=== PATIENT | female | born 1945 | race African-American/Black ===

== ENCOUNTER 2016-07-24 17:19 | Emergency (ER) | payer MEDICARE, OTHER ==
--- NOTE | 2016-07-24 18:58 | ERRECORD ---
[facility] EMERGENCY RECORD HPI CONSTIPATION (18:20 BPIC) CHIEF COMPLAINT: Patient presents for evaluation of constipation. HISTORIAN: History provided by patient. LOCATION: Symptoms are generalized. QUALITY: Pain is sharp in nature. SEVERITY: Maximum severity of symptoms mild, Currently symptoms are mild. TIME COURSE: Gradual onset of symptoms, There has been no change in the patient's symptoms over time. ASSOCIATED WITH: Associated with nausea. EXACERBATED BY: Patient's condition exacerbated by nothing. RELIEVED BY: Patient's condition relieved by nothing, Patient's condition relieved by takes miralax daily and has tried magnesium citrate. ROS (18:21 BPIC) CONSTITUTIONAL: Negative constitutional review of systems, Historian denies chills, denies fever. EYES: Negative eye review of systems. ENT: Negative ears, nose, throat review of systems. CARDIOVASCULAR: Negative cardiovascular review of systems, Historian denies chest pain, denies palpitations. RESPIRATORY: Negative respiratory review of systems, Historian denies cough, denies shortness of breath. GI: Historian reports constipation, reports nausea. states that she has had bowel movements the past 2 days but much smaller than usual. MUSCULOSKELETAL: Negative musculoskeletal review of systems. SKIN: Negative skin review of systems. NEUROLOGIC: Negative neurologic review of systems. ENDOCRINE: Negative endocrine review of systems. HEMO/LYMPHATIC: Normal hematologic/lymphatic system review. PSYCHIATRIC: Negative psychiatric review of systems. NOTES: All other ROS is negative except as listed in HPI. PAST MEDICAL HISTORY MEDICAL HISTORY: Past medical history includes history of hypertension, Past medical history includes history of diabetes, Type II, Past medical history includes endocrine disease, hypothyroidism Past medical history includes cardiac history, coronary artery disease. (17:27 JDIS) FEMALE SURGICAL HISTORY: LUMBAR LAMINECTOMY, Surgical history of appendectomy, Surgical history of cholecystectomy. Surgical history of coronary artery bypass graft surgery,. (17:27 JDIS) SOCIAL HISTORY: Patient denies alcohol use, Patient denies drug use, Patient is a former tobacco user, smoked cigarettes, Patient quit smoking more than 10 years ago, Tobacco history notes: smoked for about 10 years. (17:27 JDIS) NOTES: I have reviewed and agree with the PMH/PSxH/FamHx/SocHx &a-1R&a+25V*p+0X*[id number]*c202B*c15G*c2P*p-0X&a-25V&a+1R Name: Leisa Babcock : 1945 F71 MedRec: [id number] AcctNum: [id number] Prepared: FriJul 24, 2016 18:52 by Interface Page 1 of 3 pMD [facility] EMERGENCY RECORD obtained by the nurse. (18:21 BPIC) KNOWN ALLERGIES Latex, Natural Rubber Reglan: Reaction: Hives, Severity: Mild, Source: Patient CURRENT MEDICATIONS (18:13 JDIS) "I don't have a list with me" VITAL SIGNS VITAL SIGNS: BP: 154/122, Pulse: 69, Resp: 18, Temp: 97.6 (Oral), Pain: 8, O2 sat: 99 on Room Air, Time: 07/24/2016 17:25. (17:25 JDIS) BP: 176/77, Pulse: 69, Resp: 18, Temp: 97.6, Pain: 8, O2 sat: 99 on ra, Time: 07/24/2016 18:36. (18:36 JDIS) PHYSICAL EXAM (18:21 BPIC) CONSTITUTIONAL: Vital signs reviewed, Patient appears non toxic, Patient alert and oriented to person, place and time, Pt is in no apparent distress. HEAD: Head exam included findings of head atraumatic, normocephalic. EYES: Eye exam included findings of eyelids normal to inspection, Pupils equally round and reactive to light, Extraocular muscles intact. ENT: ENT exam normal, Nose exam normal, no nasal deformity, no bleeding from nares, Pharynx exam normal, Mouth exam normal, mucous membranes moist. NECK: Neck exam included findings of normal range of motion, Trachea midline. RESPIRATORY CHEST: Respiratory and chest exam normal, Breath sounds clear, No wheezing, No rales, Chest exam included findings of chest movement symmetrical, Chest expansion equal. CARDIOVASCULAR: Cardiovascular assessment normal, Cardiovascular exam included findings of heart rate regular rate and rhythm, Heart sounds normal, equal radial and DP pulses. ABDOMEN FEMALE: Abdominal exam included findings of abdomen nontender, Bowel sounds normal, no mass, no pulsatile masses, no peritoneal signs. BACK: Back exam included findings of normal inspection, range of motion normal, no costovertebral angle tenderness. UPPER EXTREMITY: Upper extremity exam included findings of inspection normal, Range of motion normal. LOWER EXTREMITY: Lower extremity exam included findings of inspection normal, Range of motion normal. NEURO: Neuro exam findings include patient oriented to person, place and time, Speech normal, no focal motor deficits, no focal sensory deficits. SKIN: Skin exam included findings of skin warm, dry, and normal in color. PSYCHIATRIC: Psychiatric exam included findings of patient &a-1R&a+25V*p+0X*o4486Q*c202B*c15G*c2P*p-0X&a-25V&a+1R Name: Leisa Babcock : 1945 F71 MedRec: [id number] AcctNum: [id number] Prepared: FriJul 24, 2016 18:52 by Interface Page 2 of 3 pMD [facility] EMERGENCY RECORD oriented to person place and time, Normal affect. RADIOLOGYINTERPRETATION (18:20 BPIC) ABDOMEN: KUB films negative, non obstructive bowel gas pattern. DOCTOR NOTES (18:21 BPIC) TEXT: I discussed the diagnosis with the patient prior to discharge. All questions were answered. There is no indication for admission currently and the patient will follow up with a primary care physician. Any pertinent labs or imaging were reviewed and dicussed with the patient. If any new or emergent symptoms occur, the patient will return to the emergency department. PROBLEM LIST No recorded problems DIAGNOSIS (18:22 BPIC) FINAL: PRIMARY: Constipation, ADDITIONAL: NAUSEA. PRESCRIPTION (18:23 BPIC) Colace: CAPSULE : 100 mg : ORAL : Quantity: 100 Unit: mg Route: ORAL Schedule: 2 times a day Dispense: 30 Unit: cap(s) May substitute. Refills: No Refills . NOTES: No Refills. Zofran ODT: TABLET,DISINTEGRATING : 8 mg : ORAL : Quantity: 8 Unit: mg Route: ORAL Schedule: every 6 hours PRN Dispense: 20 Unit: tab(s) May substitute. Refills: No Refills . NOTES: No Refills. DISPOSITION PATIENT: Disposition Type: Discharge, Disposition: *Discharge Home, Condition: Good. (18:22 BPIC) Disposition Transport: Car. (18:49 MCRS) Patient left the department. (18:49 MCRS) Johnson: BPIC=MD Erin, Tyron JDIS=ALEKSEY Tinajero, Salma MCRS=ALEKSEY Martino, Anthony &a-1R&a+25V*p+0X*[id number]*c202B*c15G*c2P*p-0X&a-25V&a+1R Name: Leisa Babcock : 1945 F71 MedRec: [id number] AcctNum: [id number] Prepared: FriJul 24, 2016 18:52 by Interface Page 3 of 3 pMD MTDD
--- NOTE | 2016-07-24 19:13 | PICIS ---
[facility] EMERGENCY RECORD TRIAGE (FriJul 24, 2016 17:24 JDIS) TRIAGE NOTES: pt c/o abd pain due to constipation since Friday. (FriJul 24, 2016 17:24 JDIS) PATIENT: NAME: Leisa Babcock, AGE: 71, GENDER: female, : Fri1945, TIME OF GREET: FriJul 24, 2016 17:21, PREFERRED LANGUAGE: Portuguese, ETHNICITY: Not or , FALL RISK: NO, ECODE BILLING MAP: [facility], SSN: [id number], Zip Code: [address], KG WEIGHT: 71.67, PHONE: CELL, , , PERSON ID: [id number], PCP: MD CONTRERAS IMELDA. (FriJul 24, 2016 17:24 JDIS) COMPLAINT: CONSTIPATION. (FriJul 24, 2016 17:24 JDIS) ADMISSION: URGENCY: 3 Urgent, ADMISSION SOURCE: Home, TRANSPORT: CAR, BED: ED -01. (FriJul 24, 2016 17:24 JDIS) PAIN: Patient complains of pain described as, cramping. (17:27 JDIS) IMMUNIZATIONS: Flu vaccine up to date, Tetanus not up to date, Pneumococcal vaccine not up to date. (17:27 JDIS) SIRS SCORING: Heart Rate 55-109 (0), Temp range 96.8-101.1 (0), respiratory rate 12-24 (0), Mental Status altered: no (0), Infection or Suspected Infection: No. (17:27 JDIS) TRIAGE SCREENING: Patient denies suicidal ideation, Patient denies presence of domestic violence. (17:27 JDIS) LMP: LMP: Hysterectomy. (17:27 JDIS) PROVIDERS: TRIAGE NURSE: Salma Tinajero RN. (FriJul 24, 2016 17:24 JDIS) PREVIOUS VISIT ALLERGIES: Latex, Natural Rubber, Reglan. (FriJul 24, 2016 17:24 JDIS) Latex, Natural Rubber, Reglan. (17:27 JDIS) KNOWN ALLERGIES Latex, Natural Rubber Reglan: Reaction: Hives, Severity: Mild, Source: Patient CURRENT MEDICATIONS (18:13 JDIS) "I don't have a list with me" VITAL SIGNS VITAL SIGNS: BP: 154/122, Pulse: 69, Resp: 18, Temp: 97.6 (Oral), Pain: 8, O2 sat: 99 on Room Air, Time: 07/24/2016 17:25. (17:25 JDIS) BP: 176/77, Pulse: 69, Resp: 18, Temp: 97.6, Pain: 8, O2 sat: 99 on ra, Time: 07/24/2016 18:36. (18:36 JDIS) NURSING ASSESSMENT: ABDOMEN (18:13 JDIS) CONSTITUTIONAL: Patient arrives ambulatory, Gait steady, History obtained from patient, Patient appears comfortable, Patient cooperative, Patient alert, Oriented to person, place and time, Skin warm, Skin dry, Skin normal in color, Mucous membranes pink, Mucous membranes moist, Patient is well-groomed. PAIN: cramping pain, diffusely, &a-1R&a+25V*p+0X*s7506F*c202B*c15G*c2P*p-0X&a-25V&a+1R Name: Leisa Babcock : 1945 F71 MedRec: [id number] AcctNum: [id number] Prepared: FriJul 24, 2016 18:59 by Interface Page 1 of 5 pMD [facility] EMERGENCY RECORD constant, Pain exacerbated by nothing, Nothing has been tried to alleviate the pain. ABDOMEN: Abdomen assessment findings include abdomen symmetrical, Abdomen soft, Associated with constipation. GENITOURINARY FEMALE: Notes: denies any urinary s/s. NURSING PROCEDURE: DISCHARGE NOTE (18:36 JDIS) DISCHARGE: Patient discharged to home, ambulating without assistance, driving self, accompanied by friend, Summary of Care printed/ provided, Patient requested and was provided an electronic copy of Discharge Instructions, Transition record given to patient, Discharge instructions given to patient, Simple or moderate discharge teaching performed, by Ruchi Tinajero RN, Prescriptions given and instructions on side effects given, Above person(s) verbalized understanding of discharge instructions and follow-up care, Patient treated and evaluated by physician. VITAL SIGNS: BP: 176, / 77, Pulse: 69, Resp: 18, Temp: 97.6, Pain: 8, O2 sat: 99, on: ra. ORDER DETAILS Order Name: XR Abdomen 1 View, Status: Active, Time: 17:43 07/24/2016, User: BP, - Ordered for: MD Khan Bryan, - Entered by: MD Khan Bryan - FriJul 24, 2016 17:43, - Quantity: 1. HPI CONSTIPATION (18:20 BPIC) CHIEF COMPLAINT: Patient presents for evaluation of constipation. HISTORIAN: History provided by patient. LOCATION: Symptoms are generalized. QUALITY: Pain is sharp in nature. SEVERITY: Maximum severity of symptoms mild, Currently symptoms are mild. TIME COURSE: Gradual onset of symptoms, There has been no change in the patient's symptoms over time. ASSOCIATED WITH: Associated with nausea. EXACERBATED BY: Patient's condition exacerbated by nothing. RELIEVED BY: Patient's condition relieved by nothing, Patient's condition relieved by takes miralax daily and has tried magnesium citrate. ROS (18:21 BPIC) CONSTITUTIONAL: Negative constitutional review of systems, Historian denies chills, denies fever. EYES: Negative eye review of systems. ENT: Negative ears, nose, throat review of systems. CARDIOVASCULAR: Negative cardiovascular review of systems, Historian denies chest pain, denies palpitations. RESPIRATORY: Negative respiratory review of systems, Historian denies cough, denies shortness of breath. &a-1R&a+25V*p+0X*t8544A*c202B*c15G*c2P*p-0X&a-25V&a+1R Name: Leisa Babcock : 1945 F71 MedRec: [id number] AcctNum: [id number] Prepared: FriJul 24, 2016 18:59 by Interface Page 2 of 5 pMD [facility] EMERGENCY RECORD GI: Historian reports constipation, reports nausea. states that she has had bowel movements the past 2 days but much smaller than usual. MUSCULOSKELETAL: Negative musculoskeletal review of systems. SKIN: Negative skin review of systems. NEUROLOGIC: Negative neurologic review of systems. ENDOCRINE: Negative endocrine review of systems. HEMO/LYMPHATIC: Normal hematologic/lymphatic system review. PSYCHIATRIC: Negative psychiatric review of systems. NOTES: All other ROS is negative except as listed in HPI. PAST MEDICAL HISTORY MEDICAL HISTORY: Past medical history includes history of hypertension, Past medical history includes history of diabetes, Type II, Past medical history includes endocrine disease, hypothyroidism Past medical history includes cardiac history, coronary artery disease. (17:27 JDIS) FEMALE SURGICAL HISTORY: LUMBAR LAMINECTOMY, Surgical history of appendectomy, Surgical history of cholecystectomy. Surgical history of coronary artery bypass graft surgery,. (17:27 JDIS) SOCIAL HISTORY: Patient denies alcohol use, Patient denies drug use, Patient is a former tobacco user, smoked cigarettes, Patient quit smoking more than 10 years ago, Tobacco history notes: smoked for about 10 years. (17:27 JDIS) NOTES: I have reviewed and agree with the PMH/PSxH/FamHx/SocHx obtained by the nurse. (18:21 BPIC) PHYSICAL EXAM (18:21 BPIC) CONSTITUTIONAL: Vital signs reviewed, Patient appears non toxic, Patient alert and oriented to person, place and time, Pt is in no apparent distress. HEAD: Head exam included findings of head atraumatic, normocephalic. EYES: Eye exam included findings of eyelids normal to inspection, Pupils equally round and reactive to light, Extraocular muscles intact. ENT: ENT exam normal, Nose exam normal, no nasal deformity, no bleeding from nares, Pharynx exam normal, Mouth exam normal, mucous membranes moist. NECK: Neck exam included findings of normal range of motion, Trachea midline. RESPIRATORY CHEST: Respiratory and chest exam normal, Breath sounds clear, No wheezing, No rales, Chest exam included findings of chest movement symmetrical, Chest expansion equal. CARDIOVASCULAR: Cardiovascular assessment normal, Cardiovascular exam included findings of heart rate regular rate and rhythm, Heart sounds normal, equal radial and DP pulses. ABDOMEN FEMALE: Abdominal exam included findings of abdomen &a-1R&a+25V*p+0X*r6450C*c202B*c15G*c2P*p-0X&a-25V&a+1R Name: Leisa Babcock : 1945 F71 MedRec: [id number] AcctNum: [id number] Prepared: FriJul 24, 2016 18:59 by Interface Page 3 of 5 pMD [facility] EMERGENCY RECORD nontender, Bowel sounds normal, no mass, no pulsatile masses, no peritoneal signs. BACK: Back exam included findings of normal inspection, range of motion normal, no costovertebral angle tenderness. UPPER EXTREMITY: Upper extremity exam included findings of inspection normal, Range of motion normal. LOWER EXTREMITY: Lower extremity exam included findings of inspection normal, Range of motion normal. NEURO: Neuro exam findings include patient oriented to person, place and time, Speech normal, no focal motor deficits, no focal sensory deficits. SKIN: Skin exam included findings of skin warm, dry, and normal in color. PSYCHIATRIC: Psychiatric exam included findings of patient oriented to person place and time, Normal affect. EVENTS TRANSFER: Triage to Emergency Main ED -01. (FriJul 24, 2016 17:24 JDIS) Removed from Emergency Main ED -01. (18:49 MCRS) RADIOLOGYINTERPRETATION (18:20 BPIC) ABDOMEN: KUB films negative, non obstructive bowel gas pattern. DOCTOR NOTES (18:21 BPIC) TEXT: I discussed the diagnosis with the patient prior to discharge. All questions were answered. There is no indication for admission currently and the patient will follow up with a primary care physician. Any pertinent labs or imaging were reviewed and dicussed with the patient. If any new or emergent symptoms occur, the patient will return to the emergency department. PROBLEM LIST No recorded problems DIAGNOSIS (18:22 BPIC) FINAL: PRIMARY: Constipation, ADDITIONAL: NAUSEA. DISPOSITION PATIENT: Disposition Type: Discharge, Disposition: *Discharge Home, Condition: Good. (18:22 BPIC) Disposition Transport: Car. (18:49 MCRS) Patient left the department. (18:49 MCRS) INSTRUCTION (18:23 BPIC) DISCHARGE: CONSTIPATION (ADULT). FOLLOWUP: MD DIANE, [facility], [facility], [address] [place] [id number], [phone]. SPECIAL: Please follow up with your physician in the next 2-3 &a-1R&a+25V*p+0X*[id number]*c202B*c15G*c2P*p-0X&a-25V&a+1R Name: Leisa Babcock : 1945 F71 MedRec: [id number] AcctNum: [id number] Prepared: FriJul 24, 2016 18:59 by Interface Page 4 of 5 pMD [facility] EMERGENCY RECORD days. Return to the Emergency Room with any worsening of your symptoms or other emergent concerns. Thank you for [facility] Emergency Department for your care today, and God Bless You!. PRESCRIPTION (18:23 BPIC) Colace: CAPSULE : 100 mg : ORAL : Quantity: 100 Unit: mg Route: ORAL Schedule: 2 times a day Dispense: 30 Unit: cap(s) May substitute. Refills: No Refills . NOTES: No Refills. Zofran ODT: TABLET,DISINTEGRATING : 8 mg : ORAL : Quantity: 8 Unit: mg Route: ORAL Schedule: every 6 hours PRN Dispense: 20 Unit: tab(s) May substitute. Refills: No Refills . NOTES: No Refills. IMAGING (18:39 JDIS) *DISCHARGE INSTRUCTIONS RECEIPT: Image captured from scanner. *SUPPLY CHARGE SHEET: Image captured from scanner. ADMIN (18:35 BPIC) DIGITAL SIGNATURE: MD Khan Bryan. Johnson: BPIC=MD Khan Bryan JDIS=ALEKSEY Tinajero, Salma MCRS=ALEKSEY Martino, Anthony &a-1R&a+25V*p+0X*f6327R*c202B*c15G*c2P*p-0X&a-25V&a+1R Name: Leisa Babcock : 1945 F71 MedRec: [id number] AcctNum: [id number] Prepared: FriJul 24, 2016 18:59 by Interface Page 5 of 5 pMD MTDD
--- NOTE | 2016-07-24 20:46 | RAD ---
SINGLE VIEW OF THE ABDOMEN COMPARISON: None. HISTORY: Constipation. FINDINGS: Single view of the abdomen shows a non-specific, non-obstructive bowel gas pattern. No suspicious c alcifications are seen. Cholecystectomy clips are present. IMPRESSION: Non-obstructive bowel gas pattern. POS: [facility]
== END 2016-07-24 18:36 | disposition home or self-care (01) ==
LOC: MADERS 17:19
DX: K59.00 Constipation, unspecified (principal); R11.0 Nausea; I10 Essential (primary) hypertension; E11.9 Type 2 diabetes mellitus without complications; E03.9 Hypothyroidism, unspecified; I25.10 Atherosclerotic heart disease of native coronary artery without angina pectoris; Z90.49 Acquired absence of other specified parts of digestive tract; Z95.1 Presence of aortocoronary bypass graft; Z87.891 Personal history of nicotine dependence
CPT/HCPCS: 74000; 99283

== ENCOUNTER 2016-09-20 13:05 | Outpatient (CLI) | payer MEDICARE ==
[2016-09-20 13:47] LABS: Anion Gap 17 mmol/L (10-20); BUN (Urea Nitrogen) 10 mg/dL (9.8-20.1); Calc. Creatinine Clearance 0 mL/min (70-130); Calcium 9.8 mg/dL (7.8-10.44); Carbon Dioxide 22 mmol/L (23-31); Chloride 100 mmol/L (98-107); Estimated GFR-MDRD 44; Glucose 184 mg/dL (83-110); Potassium 4.1 mmol/L (3.5-5.1); Sodium 135 mmol/L (136-145)
== END 2016-09-20 13:06 | disposition home or self-care (01) ==
LOC: MADLAB 13:05
PROVIDERS: ATTEND Internal Medicine Nephrology
DX: I12.9 Hypertensive chronic kidney disease with stage 1 through stage 4 chronic kidney disease, or unspecified chronic kidney disease (principal); N18.3 Chronic kidney disease, stage 3 (moderate); E11.00 Type 2 diabetes mellitus with hyperosmolarity without nonketotic hyperglycemic-hyperosmolar coma (NKHHC)
CPT/HCPCS: 36415; 80048

== ENCOUNTER 2016-11-26 21:18 | Emergency (ER) | payer MEDICARE ==
[2016-11-26] MEDS ORDERED: HYDROcodone/Acetaminophen 10/325 mg Tablet ONE (22:49)
[2016-11-26] MEDS ORDERED: Naproxen 500 MG TAB ONE (22:49)
[2016-11-26] MEDS ORDERED: Ondansetron ODT 4 MG TAB ONE (22:49)
[2016-11-26 22:59] LABS: Bilirubin Negative (Negative); Blood, Urine Negative (Negative); Clarity Clear (Clear); Glucose, Urine (Dipstick) 500 mg/dL (Negative); Leukocyte Negative (Negative); Nitrite Negative (Negative); Protein, Urine (Dipstick) Negative (Neg-Trace); Specific Gravity, Urine 1.015 (1.005-1.030); Urobilinogen 0.2 mg/dL (0.2-1.0)
[2016-11-26 23:06] LABS: Bacteria/HPF Rare-Few HPF (None Seen); RBC/HPF None Seen HPF (0-3); WBC/HPF None Seen HPF (0-3); Yeast-All Forms Rare HPF (None Seen)
--- NOTE | 2016-11-26 23:34 | RAD ---
AP VIEW OF THE PELVIS 11/26/16 INDICATION; Fall. FINDINGS: No acute fracture or subluxation is evident. There is an endograft stent seen within the right hemip judie. There is heterotopic ossification overlying the right lesser trochanter and left greater troc hanter. IMPRESSION: No acute osseous abnormality. POS: [facility]
--- NOTE | 2016-11-26 23:36 | RAD ---
THREE VIEWS OF THE RIGHT SHOULDER 11/26/16 INDICATION: Fall with right shoulder pain. There is mild glenohumeral osteoarthrosis. There is diffuse osteopenia. Visualized right lung is priti ar. IMPRESSION: No acute osseous abnormality. POS: [facility]
--- NOTE | 2016-11-26 23:36 | RAD ---
FOUR VIEWS OF THE RIGHT KNEE 11/26/16 INDICATION: Fall with right knee pain. FINDINGS: No acute fracture or subluxation is evident. There is mild degenerative arthrosis of the right knee predominantly affecting the medial femorotibial and patellofemoral compartments. There is chondrocal cinosis involving the menisci of the right knee. IMPRESSION: No acute osseous abnormality. POS: [facility]
--- NOTE | 2016-11-26 23:40 | CT ---
NONCONTRAST CT OF THE BRAIN 11/26/16 INDICATION: Fall. COMPARISON: Prior exam dated 06/10/14. FINDINGS: No acute infarct, hemorrhage or hydrocephalus is present. The septum pellucidum and third ventricle are midline. There is mild chronic small vessel white matter ischemic change which is similar. Skull and extracranial soft tissues are unremarkable. IMPRESSION: No acute intracranial abnormality. POS: [facility]
[2016-11-26 23:56] LABS: PTT 25.1 SEC (22.9-36.1); Prothrombin Time 13.4 SEC (12.0-14.7)
[2016-11-27 00:04] LABS: ALT (SGPT) 29 U/L (8-55); AST (SGOT) 27 U/L (5-34); Albumin 3.6 g/dL (3.4-4.8); Alkaline Phosphatase 137 U/L (40-150); Anion Gap 18 mmol/L (10-20); BUN (Urea Nitrogen) 44 mg/dL (9.8-20.1); Bilirubin, Total 0.3 mg/dL (0.2-1.2); Calc. Creatinine Clearance 0 mL/min (70-130); Calcium 9.9 mg/dL (7.8-10.44); Carbon Dioxide 22 mmol/L (23-31); Chloride 96 mmol/L (98-107); Estimated GFR-MDRD 28; Globulin 4.6 g/dL (2.4-3.5); Glucose 304 mg/dL (83-110); Potassium 4.7 mmol/L (3.5-5.1); Protein, Total 8.2 g/dL (5.8-8.1); Sodium 131 mmol/L (136-145)
[2016-11-27 00:08] LABS: Hemoglobin 12.4 g/dL (12.0-16.0); Lymphocytes 8 % (21-51); MDiff Complete? YES; Mean Corpuscular HGB CONC 33.2 g/dL (32.0-36.0); Mean Corpuscular Hemoglobin 30.7 pg (27.0-31.0); Mean Corpuscular Volume 92.4 fl (81.0-99.0); Mean Platelet Volume 6.1 fL (7.4-10.4); Monocytes 2 % (0-10); Neutrophil 89 % (42-75); PLT Morphology Comment Appears Adequate; Platelet Count 370 thou/uL (130-400); RBC Distribution Width 12.4 % (11.5-14.5); RBC Morphology Normal; Reactive Lymphocytes 1 % (0-10); Red Blood Cell (RBC) Count 4.05 mill/uL (4.20-5.40); White Blood Cell (WBC) Count 11.6 thou/uL (4.8-10.8)
--- NOTE | 2016-11-27 00:08 | CT ---
CT OF THE CERVICAL SPINE WITHOUT CONTRAST 11/26/16 INDICATION: Fall with neck pain. COMPARISON: None. FINDINGS: No acute fracture or subluxation is evident. There is severe multilevel spondylosis of the cervical spine. There is multilevel areas of calcification involving the ligamentum flavum and posterior longitudina l ligament. There is moderate osseous neural foraminal narrowing at C4-5 due to the ossifications PL L as well as the ligamentum flavum. There is at least mild to moderate central canal narrowing at C5 -6 due to ossification of the PLL and ligamentum flavum. Prevertebral soft tissues are unremarkable. Lung apices are clear. Craniocervical junction appears w ithin normal limits. IMPRESSION: 1. No acute osseous abnormality. 2. 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 POS: [facility]
--- NOTE | 2016-11-27 00:10 | RAD ---
TWO VIEWS OF THE RIGHT HIP 11/26/16 INDICATION: Fall with right hip pain. FINDINGS: No acute fracture or subluxation is evident. There is a focus of hydroxyapatite deposition see adjac ent to the lesser trochanter. There is an endograft stent seen within the right hemipelvis. IMPRESSION: 1. No acute osseous abnormality. 2. Calcific tendinosis seen near the iliopsoas insertion of the right lesser trochanter. POS: [facility]
== END 2016-11-27 00:53 | disposition home or self-care (01) ==
LOC: MADERS 21:18
DX: T07 Unspecified multiple injuries (principal); M25.511 Pain in right shoulder; M25.551 Pain in right hip; M25.561 Pain in right knee; I10 Essential (primary) hypertension; E11.9 Type 2 diabetes mellitus without complications; E03.9 Hypothyroidism, unspecified; I25.10 Atherosclerotic heart disease of native coronary artery without angina pectoris; Z87.891 Personal history of nicotine dependence; Z79.899 Other long term (current) drug therapy; Z79.84 Long term (current) use of oral hypoglycemic drugs; W06.XXXA Fall from bed, initial encounter
CPT/HCPCS: 36415; 70450; 72125; 72170; 80053; 81001; 83880; 85025; 85610; 85730; 87086; Q0162

== ENCOUNTER 2017-02-10 15:11 | Emergency (ER) | payer MEDICARE, OTHER ==
--- NOTE | 2017-02-10 16:27 | RAD ---
CHEST PA AND LATERAL: History: 71-year-old female with cough. Comparison: 06-05-16 FINDINGS: Post underlying sternotomy. Left humeral head replacement changes. Mild increased linear and interst itial markings bilaterally. Atherosclerosis of the aorta with some ectasia. Appearance is overall st able from the prior study. IMPRESSION: Mild stable chronic changes. No significant acute intrathoracic disease. POS: [facility]
== END 2017-02-10 17:08 | disposition home or self-care (01) ==
LOC: MADERS 15:11
DX: J06.9 Acute upper respiratory infection, unspecified (principal); I10 Essential (primary) hypertension; E11.9 Type 2 diabetes mellitus without complications; E03.9 Hypothyroidism, unspecified; I25.10 Atherosclerotic heart disease of native coronary artery without angina pectoris; Z87.891 Personal history of nicotine dependence
CPT/HCPCS: 71020

== ENCOUNTER 2017-03-21 13:30 | Outpatient (CLI) | payer MEDICARE ==
[2017-03-21 14:12] LABS: Anion Gap 15 mmol/L (10-20); BUN (Urea Nitrogen) 16 mg/dL (9.8-20.1); Calc. Creatinine Clearance 0 mL/min (70-130); Carbon Dioxide 24 mmol/L (23-31); Chloride 100 mmol/L (98-107); Estimated GFR-MDRD 40; Glucose 159 mg/dL (83-110); Potassium 3.6 mmol/L (3.5-5.1); Sodium 135 mmol/L (136-145)
== END 2017-03-21 13:31 | disposition home or self-care (01) ==
LOC: MADLAB 13:30
PROVIDERS: ATTEND Internal Medicine Nephrology
DX: I12.9 Hypertensive chronic kidney disease with stage 1 through stage 4 chronic kidney disease, or unspecified chronic kidney disease (principal); N18.3 Chronic kidney disease, stage 3 (moderate); E11.00 Type 2 diabetes mellitus with hyperosmolarity without nonketotic hyperglycemic-hyperosmolar coma (NKHHC)
CPT/HCPCS: 36415; 80048

== ENCOUNTER 2017-04-11 21:32 | Emergency (ER) | payer MEDICARE ==
[2017-04-11] MEDS ORDERED: Meclizine HCl 25 MG TAB ONE (22:01)
[2017-04-11 23:04] LABS: #Basophils 0.1 thou/uL (0.0-0.2); #Eosinphils 0.3 thou/uL (0.0-0.7); #Lymphocytes 1.7 thou/uL (1.20-3.40); #Monocytes 0.5 thou/uL (0.11-0.59); #Neutrophils 4.9 thou/uL (1.40-6.50); %Basophils 1.6 % (0.0-1.0); %Eosinophils 4.2 % (0.0-10.0); %Lymphocytes 22.2 % (21.0-51.0); %Monocytes 6.2 % (0.0-10.0); %Neutrophils 65.8 % (42.0-75.0); Hemoglobin 12.2 g/dL (12.0-16.0); Mean Corpuscular Hemoglobin 30.4 pg (27.0-31.0); Mean Corpuscular Volume 92.2 fl (81.0-99.0); Mean Platelet Volume 6.6 fL (7.4-10.4); Platelet Count 270 thou/uL (130-400); RBC Distribution Width 12.5 % (11.5-14.5); White Blood Cell (WBC) Count 7.4 thou/uL (4.8-10.8)
[2017-04-11 23:07] LABS: Anion Gap 15 mmol/L (10-20); BUN (Urea Nitrogen) 12 mg/dL (9.8-20.1); Calc. Creatinine Clearance 0 mL/min (70-130); Calcium 9.2 mg/dL (7.8-10.44); Carbon Dioxide 26 mmol/L (23-31); Chloride 100 mmol/L (98-107); Estimated GFR-MDRD 43; Glucose 144 mg/dL (83-110); Potassium 3.7 mmol/L (3.5-5.1); Sodium 137 mmol/L (136-145)
== END 2017-04-11 23:35 | disposition home or self-care (01) ==
LOC: MADERS 21:32
DX: H81.13 Benign paroxysmal vertigo, bilateral (principal); I10 Essential (primary) hypertension; E11.9 Type 2 diabetes mellitus without complications; E03.9 Hypothyroidism, unspecified; I25.10 Atherosclerotic heart disease of native coronary artery without angina pectoris; Z87.891 Personal history of nicotine dependence
CPT/HCPCS: 36416; 80048; 85025; 93005; 36415-59

== ENCOUNTER 2017-05-03 10:38 | Emergency (ER) | payer MEDICARE ==
[2017-05-03] MEDS ORDERED: Ketorolac Tromethamine 60 MG/2 ML VIAL ONE (11:35)
[2017-05-03] MEDS ORDERED: Ondansetron ODT 4 MG TAB ONE (11:43)
== END 2017-05-03 12:07 | disposition home or self-care (01) ==
LOC: MADERS 10:38
DX: M13.0 Polyarthritis, unspecified (principal); M10.9 Gout, unspecified; E11.9 Type 2 diabetes mellitus without complications; I10 Essential (primary) hypertension; E03.9 Hypothyroidism, unspecified; I25.10 Atherosclerotic heart disease of native coronary artery without angina pectoris; Z87.891 Personal history of nicotine dependence; Z79.82 Long term (current) use of aspirin; Z79.899 Other long term (current) drug therapy
CPT/HCPCS: 96372; J1885; Q0162

== ENCOUNTER 2017-06-18 14:15 | Emergency (ER) | payer MEDICARE, OTHER ==
[~2017-06-18 14:15] MED LIST: Sodium Chloride 0.9% 1,000 ML BAG ONE; Sodium Chloride 0.9% 100 ML BAG ONE
--- NOTE | 2017-06-18 14:59 | RAD ---
PORTABLE CHEST: History: Sepsis. Hypertension. FINDINGS: Lungs appear well aerated and clear. No infiltrates seen. Heart is upper normal size with post op jamel rnotomy change. No interval change noted with compared to 06-05-16 exam. IMPRESSION: No acute finding. POS: [facility]
[2017-06-18 15:43] LABS: ALT (SGPT) 43 U/L (8-55); AST (SGOT) 31 U/L (5-34); Alkaline Phosphatase 96 U/L (40-150); Anion Gap 13 mmol/L (10-20); BUN (Urea Nitrogen) 22 mg/dL (9.8-20.1); Bilirubin, Total 0.8 mg/dL (0.2-1.2); Calc. Creatinine Clearance 0 mL/min (70-130); Calcium 8.5 mg/dL (7.8-10.44); Carbon Dioxide 24 mmol/L (23-31); Chloride 96 mmol/L (98-107); Estimated GFR-MDRD 41; Globulin 3.7 g/dL (2.4-3.5); Glucose 123 mg/dL (83-110); Potassium 4.1 mmol/L (3.5-5.1); Protein, Total 6.7 g/dL (6.0-8.3)
[2017-06-18 15:44] LABS: Band 10 % (5-11); Hemoglobin 10.8 g/dL (12.0-16.0); Lymphocytes 14 % (21-51); MDiff Complete? YES; Mean Corpuscular HGB CONC 34.4 g/dL (32.0-36.0); Mean Corpuscular Hemoglobin 31.6 pg (27.0-31.0); Mean Corpuscular Volume 91.9 fl (81.0-99.0); Mean Platelet Volume 8.2 fL (7.4-10.4); Monocytes 13 % (0-10); Neutrophil 63 % (42-75); Platelet Count 148 thou/uL (130-400); RBC Distribution Width 13.7 % (11.5-14.5); Red Blood Cell (RBC) Count 3.42 mill/uL (4.20-5.40)
[2017-06-18 15:47] LABS: Sodium 129 mmol/L (136-145)
[2017-06-18] MEDS ORDERED: Piperacillin/Tazobactam 3.375 GM VIAL ONE (16:27)
[2017-06-18 17:35] LABS: Bilirubin Negative (Negative); Blood, Urine Negative (Negative); Clarity Clear (Clear); Glucose, Urine (Dipstick) Negative (Negative); Leukocyte Negative (Negative); Nitrite Negative (Negative); Protein, Urine (Dipstick) Negative (Neg-Trace); Specific Gravity, Urine 1.005 (1.005-1.030); Urobilinogen 0.2 mg/dL (0.2-1.0)
[2017-06-18] MEDS ORDERED: Lidocaine 1% 20 ML MDV ONE (18:38)
[2017-06-18] MEDS ORDERED: Ondansetron HCl/PF 4 MG/2 ML Vial ONE (18:49)
[2017-06-18] MEDS ORDERED: Vancomycin HCl 500 MG VIAL ONE (18:59)
--- NOTE | 2017-06-18 21:04 | CT ---
CT ABDOMEN AND PELVIS WITHOUT CONTRAST 06/18/17 HISTORY: Diverticulosis. Abdominal pain. COMPARISON: CT abdomen and pelvis 2014. FINDINGS: There is mild atelectatic changes in the left lung base. No pericardial effusion. The liver is mildly enlarged. The spleen is normal. Cholecystectomy clips. There is extensive diverticular disease of the sigmoid colon with active inflammation. No focal macro perforation or drainable fluid collection. No renal calculus is seen. There is mild dilatation of the right and left renal pelves. There is a hypodensity superior pole right kidney which is homogeneous suggestive of a cyst. IMPRESSION: Uncomplicated sigmoid diverticulitis. POS: [facility]
[2017-06-18] MEDS ORDERED: Fentanyl 100 MCG/2 ML VIAL ONE (21:22)
== END 2017-06-18 21:31 | disposition short-term general hospital (02) ==
LOC: MADERS 14:15
DX: I95.9 Hypotension, unspecified (principal); I10 Essential (primary) hypertension; E11.9 Type 2 diabetes mellitus without complications; E03.9 Hypothyroidism, unspecified; I25.10 Atherosclerotic heart disease of native coronary artery without angina pectoris; Z87.891 Personal history of nicotine dependence
CPT/HCPCS: 36415; 71010; 74176; 80053; 81003; 83605; 84443; 85025; 87040; 87086; 96361; 96365; 96366; 96375; J2001; J2405; J2543; J3010; J3370; J7050

== ENCOUNTER 2017-09-03 11:46 | Outpatient (CLI) | payer MEDICARE ==
[2017-09-03 12:15] LABS: Mean Corpuscular HGB CONC 32.6 g/dL (32.0-36.0); Mean Corpuscular Hemoglobin 30.2 pg (27.0-31.0); Mean Corpuscular Volume 92.8 fl (81.0-99.0); Mean Platelet Volume 6.2 fL (7.4-10.4); Platelet Count 275 thou/uL (130-400); RBC Distribution Width 13.9 % (11.5-14.5); White Blood Cell (WBC) Count 5.2 thou/uL (4.8-10.8)
[2017-09-03 12:40] LABS: ALT (SGPT) 20 U/L (8-55); AST (SGOT) 37 U/L (5-34); Albumin 3.8 g/dL (3.4-4.8); Alkaline Phosphatase 117 U/L (40-150); Anion Gap 16 mmol/L (10-20); BUN (Urea Nitrogen) 13 mg/dL (9.8-20.1); Bilirubin, Total 0.4 mg/dL (0.2-1.2); Calc. Creatinine Clearance 0 mL/min (70-130); Carbon Dioxide 24 mmol/L (23-31); Chloride 100 mmol/L (98-107); Estimated GFR-MDRD 47; Globulin 4.6 g/dL (2.4-3.5); Glucose 101 mg/dL (83-110); Potassium 3.7 mmol/L (3.5-5.1); Protein, Total 8.4 g/dL (6.0-8.3); Sodium 136 mmol/L (136-145)
== END 2017-09-03 11:47 | disposition home or self-care (01) ==
LOC: MADLAB 11:46
DX: M10.071 Idiopathic gout, right ankle and foot (principal)
CPT/HCPCS: 36415; 80053; 84550; 85027; 85652; 86140

== ENCOUNTER 2017-09-19 13:07 | Outpatient (CLI) | payer MEDICARE ==
[2017-09-19 13:46] LABS: Anion Gap 17 mmol/L (10-20); BUN (Urea Nitrogen) 17 mg/dL (9.8-20.1); Calc. Creatinine Clearance 0 mL/min (70-130); Carbon Dioxide 24 mmol/L (23-31); Chloride 101 mmol/L (98-107); Estimated GFR-MDRD 38; Potassium 3.8 mmol/L (3.5-5.1); Sodium 138 mmol/L (136-145)
[2017-09-19 13:47] LABS: Calcium 9.3 mg/dL (7.8-10.44); Glucose 115 mg/dL (83-110)
== END 2017-09-19 13:08 | disposition home or self-care (01) ==
LOC: MADLAB 13:07
PROVIDERS: ATTEND Internal Medicine Nephrology
DX: I12.9 Hypertensive chronic kidney disease with stage 1 through stage 4 chronic kidney disease, or unspecified chronic kidney disease (principal); N18.3 Chronic kidney disease, stage 3 (moderate); E55.9 Vitamin D deficiency, unspecified
CPT/HCPCS: 36415; 80048

== ENCOUNTER 2017-10-30 13:02 | Emergency (ER) | payer MEDICARE ==
[2017-10-30] MEDS ORDERED: Naproxen 500 MG TAB ONE (13:44)
[2017-10-30] MEDS ORDERED: Ondansetron ODT 4 MG TAB ONE (13:44)
[2017-10-30] MEDS ORDERED: Ciprofloxacin 500 MG TAB ONE (13:44)
[2017-10-30] MEDS ORDERED: metroNIDAZOLE 250 MG TAB ONE (13:44)
--- NOTE | 2017-10-30 14:01 | RAD ---
2 VIEWS ABDOMEN AND UPRIGHT VIEW CHEST: Date: 10/30/17 HISTORY: Pain in upper abdomen and left lower quadrant of the abdomen. FINDINGS: Supine and upright views of the abdomen and upright view of the chest show a nonspecific, nonobstruct hitesh bowel gas pattern. Air is seen in the rectum. No free air or air fluid levels are seen on upright examination. Cholecystectomy clips are seen. Vascular stents are seen in the right leg. The cardiomediastinal silh ouette is normal in size. The patient is status post sternotomy. There is no evidence of consolidatio n, mass, or pleural effusion. The patient is status post left shoulder arthroplasty. IMPRESSION: Nonobstructive bowel gas pattern. POS: [facility]
== END 2017-10-30 15:20 | disposition home or self-care (01) ==
LOC: MADERS 13:02
DX: K57.92 Diverticulitis of intestine, part unspecified, without perforation or abscess without bleeding (principal); I25.10 Atherosclerotic heart disease of native coronary artery without angina pectoris; E11.9 Type 2 diabetes mellitus without complications; E03.9 Hypothyroidism, unspecified; I10 Essential (primary) hypertension; F41.9 Anxiety disorder, unspecified; Z87.891 Personal history of nicotine dependence
CPT/HCPCS: 74022; Q0162

== ENCOUNTER → 2017-11-19 | Emergency (ER) | payer MEDICARE ==
[~2017-11-19] MED LIST changes: +Clindamycin/D5W 600 mg/50 ml Premix Bag ONE; +Ketorolac Tromethamine 30 MG/ML VIAL ONE; +MORPHINE 10 MG/ML SYRINGE ONE; +Ondansetron HCl/PF 4 MG/2 ML Vial ONE; +cefTRIAXone\\ROCEPHIN 2 GM VIAL ONE; +metroNIDAZOLE 500 MG/100 ML BAG ONE
[2017-11-20 01:45] LABS: #Basophils 0.1 thou/uL (0.0-0.2); #Eosinphils 0.3 thou/uL (0.0-0.7); #Monocytes 0.6 thou/uL (0.11-0.59); #Neutrophils 2.8 thou/uL (1.40-6.50); %Basophils 1.5 % (0.0-1.0); %Eosinophils 5.2 % (0.0-10.0); %Lymphocytes 33.9 % (21.0-51.0); %Monocytes 11.1 % (0.0-10.0); %Neutrophils 48.3 % (42.0-75.0); Hemoglobin 11.6 g/dL (12.0-16.0); Mean Corpuscular HGB CONC 33.5 g/dL (32.0-36.0); Mean Corpuscular Hemoglobin 30.1 pg (27.0-31.0); Mean Corpuscular Volume 89.8 fl (81.0-99.0); Mean Platelet Volume 6.3 fL (7.4-10.4); Platelet Count 242 thou/uL (130-400); RBC Distribution Width 14.3 % (11.5-14.5); Red Blood Cell (RBC) Count 3.87 mill/uL (4.20-5.40); White Blood Cell (WBC) Count 5.8 thou/uL (4.8-10.8)
[2017-11-20 01:52] LABS: CKMB 1.6 ng/mL (0-6.6); Troponin I 0.033 ng/mL (< 0.028)
[2017-11-20 01:54] LABS: Bilirubin Negative (Negative); Blood, Urine Negative (Negative); Clarity Clear (Clear); Glucose, Urine (Dipstick) Negative (Negative); Leukocyte Negative (Negative); Nitrite Negative (Negative); Protein, Urine (Dipstick) Negative (Neg-Trace); Urobilinogen 0.2 mg/dL (0.2-1.0); pH, Urine 5.5 (5.0-9.0)
[2017-11-20 01:57] LABS: ALT (SGPT) 12 U/L (8-55); AST (SGOT) 18 U/L (5-34); Albumin 3.6 g/dL (3.4-4.8); Alkaline Phosphatase 110 U/L (40-150); Anion Gap 18 mmol/L (10-20); BUN (Urea Nitrogen) 10 mg/dL (9.8-20.1); Bilirubin, Total 0.4 mg/dL (0.2-1.2); CK (CPK) 104 U/L (29-168); Calc. Creatinine Clearance 0 mL/min (70-130); Calcium 8.9 mg/dL (7.8-10.44); Carbon Dioxide 18 mmol/L (23-31); Chloride 105 mmol/L (98-107); Estimated GFR-MDRD 57; Globulin 3.9 g/dL (2.4-3.5); Glucose 104 mg/dL (83-110); Lipase 44 U/L (8-78); Potassium 3.8 mmol/L (3.5-5.1); Protein, Total 7.5 g/dL (6.0-8.3); Sodium 137 mmol/L (136-145)
[2017-11-20 02:38] LABS: Bacteria/HPF Rare-Few HPF (None Seen); RBC/HPF 0-3 HPF (0-3); Transitional Epithelial 0-3 HPF (0-3); WBC/HPF 0-3 HPF (0-3)
--- NOTE | 2017-11-20 09:25 | CT ---
PRELIMINARY REPORT/[facility]/EMERGENTY AFTER-HOURS PROCEDURE CT Abdomen and Pelvis Without Intravenous Contrast CLINICAL HISTORY: 72 years old, female; Pain; Abdominal pain; Localized; Left lower quadrant (llq); Patient HX: HX of d iverticulitis. Pt refused contrast was told by doctor marko wu. Additional info: Abdomen pain and n ausea that started tonight 1999. TECHNIQUE: Axial computed tomography images of the abdomen and pelvis without intravenous contrast. All CT scans at this facility use one or more dose reduction techniques, viz.: automated exposure control; ma/kV adjustment per patient size (including targeted exams where dose is matched to indication; i.e. head) ; or iterative reconstruction technique. COMPARISON: No relevant prior studies available. FINDINGS: Lung bases: Mild dependent and basilar atelectasis. Mild cardiomegaly. Coronary calcifications. ABDOMEN: Liver: No mass. Gallbladder and bile ducts: Prior cholecystectomy. Pancreas: No ductal dilation. No mass. Spleen: No mass. Adrenals: No mass. Kidneys and ureters: No obstructing stones. No hydronephrosis. Small right renal probable cyst. Stomach and bowel: Fluid-filled mildly distended small bowel loops, nonspecific and can be seen with enteritis. No evidence of bowel obstruction. Diverticulosis. PELVIS: Appendix: No findings to suggest acute appendicitis. Bladder: No stones. Reproductive: No acute findings. ABDOMEN and PELVIS: Intraperitoneal space: No acute findings. No free air. No significant fluid collection. Bones/joints: No acute fracture. Prior sternotomy. Degenerative changes of the spine. Soft tissues: No acute findings. Vasculature: Atherosclerotic calcifications. Right iliac artery stent. No abdominal aortic aneurysm. Lymph nodes: No lymphadenopathy. IMPRESSION: No definite acute findings. Possible enteritis. Thank you for allowing us to participate in the care of your patient. Dictated and Authenticated by: Sven Villagran MD 11/20/2017 1:18 AM Central Time ([place] & [place]) CT ABDOMEN AND PELVIS NONCONTRAST: Date: 11-20-17 Performed on emergency basis at 0005 hours. History: Left flank pain. Comparison: 06-18-17 FINDINGS: Findings agree with the preliminary report by Dr. Villagran from [facility]. There is no CT eviden ce of urinary tract obstruction or calcification. Lack of contrast limits evaluation for other abnorm alities. Post-operative changes are apparent. Diverticulosis without evidence of diverticulitis. Code QA POS: [facility]
== END ==
LOC: MADERS 23:23
DX: K52.9 Noninfective gastroenteritis and colitis, unspecified (principal); I10 Essential (primary) hypertension; I25.10 Atherosclerotic heart disease of native coronary artery without angina pectoris; E11.9 Type 2 diabetes mellitus without complications; E03.9 Hypothyroidism, unspecified; F41.9 Anxiety disorder, unspecified; Z79.82 Long term (current) use of aspirin; Z79.899 Other long term (current) drug therapy; Z87.891 Personal history of nicotine dependence
CPT/HCPCS: 74176; 80053; 81001; 82150; 82553; 83605; 83690; 84484; 85025; 87086; 96361; 96365; 96367; 96375; 96376; J0696; J1885; J2270; J2405; J3490; J7050

== ENCOUNTER 2017-11-30 17:14 | Emergency (ER) | payer MEDICARE ==
[2017-11-30] MEDS ORDERED: Sodium Chloride Irrig Solution 250 ML BOT ONE (19:30)
== END 2017-11-30 19:36 | disposition home or self-care (01) ==
LOC: MADERS 17:14
DX: Z47.89 Encounter for other orthopedic aftercare (principal); Z48.01 Encounter for change or removal of surgical wound dressing; I25.10 Atherosclerotic heart disease of native coronary artery without angina pectoris; E11.9 Type 2 diabetes mellitus without complications; E03.9 Hypothyroidism, unspecified; I10 Essential (primary) hypertension; F41.9 Anxiety disorder, unspecified; Z87.891 Personal history of nicotine dependence; Z79.84 Long term (current) use of oral hypoglycemic drugs; Z79.82 Long term (current) use of aspirin; Z79.899 Other long term (current) drug therapy
CPT/HCPCS: 99282

== ENCOUNTER 2017-12-12 21:19 | Emergency (ER) | payer MEDICARE ==
[2017-12-12] MEDS ORDERED: Triple Antibiotic Oint 1 GM Packet ONE (23:08)
== END 2017-12-12 23:21 | disposition home or self-care (01) ==
LOC: MADERS 21:19
DX: Z48.01 Encounter for change or removal of surgical wound dressing (principal); I25.10 Atherosclerotic heart disease of native coronary artery without angina pectoris; E11.9 Type 2 diabetes mellitus without complications; E03.9 Hypothyroidism, unspecified; K57.92 Diverticulitis of intestine, part unspecified, without perforation or abscess without bleeding; I10 Essential (primary) hypertension; F41.9 Anxiety disorder, unspecified; Z87.891 Personal history of nicotine dependence; Z79.82 Long term (current) use of aspirin; Z79.899 Other long term (current) drug therapy
CPT/HCPCS: 99282

== ENCOUNTER 2018-05-12 12:33 | Emergency (ER) | payer MEDICARE ==
[~2018-05-12 12:33] MED LIST changes: -Clindamycin/D5W 600 mg/50 ml Premix Bag ONE; +Iopamidol 370 76% 100 ML VIAL ONE; -Ketorolac Tromethamine 30 MG/ML VIAL ONE; -MORPHINE 10 MG/ML SYRINGE ONE; -Ondansetron HCl/PF 4 MG/2 ML Vial ONE; -Sodium Chloride 0.9% 100 ML BAG ONE; -cefTRIAXone\\ROCEPHIN 2 GM VIAL ONE; -metroNIDAZOLE 500 MG/100 ML BAG ONE
[2018-05-12 13:20] LABS: Bilirubin Negative (Negative); Blood, Urine Small (Negative); Clarity Hazy (Clear); Glucose, Urine (Dipstick) Negative (Negative); Leukocyte Negative (Negative); Nitrite Negative (Negative); Protein, Urine (Dipstick) 100 mg/dL (Neg-Trace); Urobilinogen 0.2 mg/dL (0.2-1.0)
[2018-05-12 13:29] LABS: Bacteria/HPF Rare-Few HPF (None Seen); WBC/HPF None Seen HPF (0-3)
[2018-05-12] MEDS ORDERED: Ondansetron HCl/PF 4 MG/2 ML Vial ONE (14:12)
[2018-05-12] MEDS ORDERED: Ketorolac Tromethamine 30 MG/ML VIAL ONE (14:12)
[2018-05-12 14:16] LABS: Band 11 % (5-11); Eosinophils 3 % (0-10); Hemoglobin 13.6 g/dL (12.0-16.0); Lymphocytes 16 % (21-51); MDiff Complete? YES; Mean Corpuscular HGB CONC 32.1 g/dL (32.0-36.0); Mean Corpuscular Hemoglobin 30.1 pg (27.0-31.0); Mean Corpuscular Volume 93.8 fL (78.0-98.0); Mean Platelet Volume 7.6 fL (7.4-10.4); Monocytes 3 % (0-10); Neutrophil 67 % (42-75); PLT Morphology Comment Appears Adequate; Platelet Clumps SLIGHT; Platelet Count 265 thou/uL (130-400); Red Blood Cell (RBC) Count 4.51 mill/uL (4.20-5.40); White Blood Cell (WBC) Count 9.6 thou/uL (4.8-10.8)
[2018-05-12 14:18] LABS: ALT (SGPT) 120 U/L (8-55); AST (SGOT) 239 U/L (5-34); Albumin 4.3 g/dL (3.4-4.8); Alkaline Phosphatase 107 U/L (40-150); Anion Gap 17 mmol/L (10-20); BUN (Urea Nitrogen) 16 mg/dL (9.8-20.1); Bilirubin, Total 0.9 mg/dL (0.2-1.2); Calc. Creatinine Clearance 0 mL/min (70-130); Calcium 10.3 mg/dL (7.8-10.44); Carbon Dioxide 24 mmol/L (23-31); Chloride 97 mmol/L (98-107); Estimated GFR-MDRD 45; Globulin 4.9 g/dL (2.4-3.5); Glucose 137 mg/dL (83-110); Potassium 4.8 mmol/L (3.5-5.1); Protein, Total 9.2 g/dL (6.0-8.3); Sodium 133 mmol/L (136-145); Troponin I 0.017 ng/mL (< 0.028)
--- NOTE | 2018-05-12 14:21 | RAD ---
FRONTAL VIEW CHEST: Date: 05/12/18 COMPARISON: 11/20/17. INDICATION: Pain. FINDINGS: There is a stable cardiomediastinal silhouette. Bilateral interstitial prominence of each lung is pre sent. There is no obvious effusion or discrete pneumothorax. Chest is otherwise similar. IMPRESSION: Findings indicating edema, which may be related to decompensated CHF. Recommend clinical correlation, as well as imaging follow-up. POS: [facility]
[2018-05-12 14:30] LABS: CKMB 20.9 ng/mL (0-6.6)
--- NOTE | 2018-05-12 15:45 | CT ---
CONTRAST ENHANCED CT IMAGES ABDOMEN AND PELVIS: 05/12/18 HISTORY: Left sided pain since yesterday. Contrast enhanced CT images of the abdomen and pelvis is obtained from the dome of the diaphragm thro ugh the pubic symphysis. IV and oral contrast was given. Sternotomy wires seen. There is an area of scarring in the left lung base. No evidence of free intraperitoneal air seen. Endovascular stent seen in the right common and external iliac arteries. The liver and spleen are unremarkable. The gallbladder has been surgically removed. Radiopaque contra st appears to have been injected into the left lower extremity migrating upward into the inferior sandee a cava. The gallbladder has been surgically removed. The pancreas is unremarkable. The adrenal glands are unremarkable. The right kidney contains 2.0 cm area of hypodensity possibly representing a right renal cyst. Correl ate with sonography. The left kidney demonstrates no definite masses. No evidence of hydroureteroneph rosis seen. No dilated loops of small bowel seen. Colonic diverticulosis is present. No definite abnormally dilated appendix is seen. Multilevel lumbar degenerative changes seen. No evidence of periaortic lymphadenopathy or pelvic lymphadenopathy. Extensive sigmoid colon diverticulosis is present. IMPRESSION: Extensive colonic diverticulosis. POS: [facility]
[2018-05-12 17:27] LABS: Troponin I 0.022 ng/mL (< 0.028)
[2018-05-12] MEDS ORDERED: Fentanyl 100 MCG/2 ML VIAL ONE (17:50)
== END 2018-05-12 18:59 | disposition short-term general hospital (02) ==
LOC: MADERS 12:33
DX: M62.82 Rhabdomyolysis (principal); I25.10 Atherosclerotic heart disease of native coronary artery without angina pectoris; E11.9 Type 2 diabetes mellitus without complications; E03.9 Hypothyroidism, unspecified; I10 Essential (primary) hypertension; F41.9 Anxiety disorder, unspecified; Z87.891 Personal history of nicotine dependence
CPT/HCPCS: 36415; 71045; 74177; 80053; 81003; 81015; 82553; 83605; 84484; 85025; 93005; 94760; 96361; 96374; 96375; J1885; J2405; J3010; J7050

== ENCOUNTER 2018-07-19 15:58 | Emergency (ER) | payer MEDICARE | END 2018-07-19 16:31 | disposition home or self-care (01) | LOC: MADERS 15:58 | DX: J30.2 Other seasonal allergic rhinitis (principal); I25.10 Atherosclerotic heart disease of native coronary artery without angina pectoris; I10 Essential (primary) hypertension; E11.9 Type 2 diabetes mellitus without complications; E03.9 Hypothyroidism, unspecified; F41.9 Anxiety disorder, unspecified; Z87.891 Personal history of nicotine dependence; Z79.899 Other long term (current) drug therapy; Z79.82 Long term (current) use of aspirin | CPT/HCPCS: 99283 ==

== ENCOUNTER 2018-09-23 09:50 | Outpatient (CLI) | payer MEDICARE ==
[2018-09-23 10:30] LABS: Anion Gap 13 mmol/L (10-20); BUN (Urea Nitrogen) 13 mg/dL (9.8-20.1); Calc. Creatinine Clearance 0 mL/min (70-130); Carbon Dioxide 27 mmol/L (23-31); Chloride 103 mmol/L (98-107); Estimated GFR-MDRD 45; Glucose 136 mg/dL (83-110); Potassium 4.1 mmol/L (3.5-5.1); Sodium 139 mmol/L (136-145)
--- NOTE | 2018-09-23 12:53 | ULT ---
RENAL ULTRASOUND: HISTORY: Urinary retention. Chronic kidney disease. TECHNIQUE: Multiplanar reed-scale and color Doppler images were obtained in a renal ultrasound. FINDINGS: The kidneys are normal in echogenicity without hydronephrosis or calculi and measure 9.6 and 9 cm in length, on the right and left, respectively. Limited visualization of the urinary bladder is unremarkable. Minimal post void residual is seen. IMPRESSION: No significant renal abnormality. POS: [facility]
== END 2018-09-23 09:51 | disposition home or self-care (01) ==
LOC: MADLAB 09:50
PROVIDERS: ATTEND Internal Medicine Nephrology
DX: I12.9 Hypertensive chronic kidney disease with stage 1 through stage 4 chronic kidney disease, or unspecified chronic kidney disease (principal); N18.3 Chronic kidney disease, stage 3 (moderate); R33.9 Retention of urine, unspecified; E55.9 Vitamin D deficiency, unspecified
CPT/HCPCS: 36415; 76770; 80048

== ENCOUNTER 2019-01-08 11:22 | Emergency (ER) | payer MEDICARE ==
[2019-01-08 12:06] LABS: Bilirubin Negative (Negative); Blood, Urine Negative (Negative); Glucose, Urine (Dipstick) Negative (Negative); Leukocyte Negative (Negative); Nitrite Negative (Negative); Protein, Urine (Dipstick) Negative (Neg-Trace); Urobilinogen 0.2 mg/dL (0.2-1.0); pH, Urine 5.5 (5.0-9.0)
[2019-01-08 12:08] LABS: Clarity Hazy (Clear); Specific Gravity, Urine 1.004 (1.002-1.036)
== END 2019-01-08 12:41 | disposition home or self-care (01) ==
LOC: MADERS 11:22
DX: B34.9 Viral infection, unspecified (principal); I25.10 Atherosclerotic heart disease of native coronary artery without angina pectoris; E11.9 Type 2 diabetes mellitus without complications; E03.9 Hypothyroidism, unspecified; I10 Essential (primary) hypertension; Z87.891 Personal history of nicotine dependence; F41.9 Anxiety disorder, unspecified; Z79.899 Other long term (current) drug therapy; Z79.82 Long term (current) use of aspirin
CPT/HCPCS: 81003; 87804; 99283

== ENCOUNTER 2019-02-13 12:23 | Emergency (ER) | payer MEDICARE ==
[2019-02-13] MEDS ORDERED: Tetracaine 0.5% OPHTH SOLN/PF 4 ML BOT ONE (13:00)
== END 2019-02-13 13:15 | disposition home or self-care (01) ==
LOC: MADERS 12:23
DX: H11.32 Conjunctival hemorrhage, left eye (principal); I25.10 Atherosclerotic heart disease of native coronary artery without angina pectoris; E11.9 Type 2 diabetes mellitus without complications; E03.9 Hypothyroidism, unspecified; I10 Essential (primary) hypertension; F41.9 Anxiety disorder, unspecified; Z87.891 Personal history of nicotine dependence; Z79.82 Long term (current) use of aspirin; Z79.899 Other long term (current) drug therapy; Z79.84 Long term (current) use of oral hypoglycemic drugs
CPT/HCPCS: 99281

== ENCOUNTER 2019-05-17 21:32 | Emergency (ER) | payer MEDICARE ==
[2019-05-17] MEDS ORDERED: Ondansetron PF 4 MG/2 ML Vial ONE (22:14)
--- NOTE | 2019-05-17 22:44 | RAD ---
Chest AP view INDICATION: Headache with cough and congestion COMPARISON: May 12, 2018 FINDINGS: Lungs:No consolidation is evident. Cardiac silhouette:There is stable mild cardiomegaly and post-CABG change Pulmonary vasculature:Normal Pleural spaces:No pleural effusion or pneumothorax is demonstrated. Upper abdomen:No abnormality seen. Osseous structures: There is a left total shoulder replacement. No acute fracture or subluxation demo nstrated. Additional findings:None. IMPRESSION: Stable mild cardiomegaly. No definite acute cardiopulmonary abnormality.
[2019-05-17] MEDS ORDERED: Ondansetron ODT 4 MG TAB ONE (23:02)
[2019-05-17 23:36] LABS: #Eosinphils 0.5 thou/uL (0.0-0.7); #Lymphocytes 1.7 thou/uL (1.20-3.40); #Monocytes 0.6 thou/uL (0.11-0.59); #Neutrophils 3.2 thou/uL (1.40-6.50); %Basophils 0.8 % (0.0-1.0); %Eosinophils 8.5 % (0.0-10.0); %Lymphocytes 28.7 % (21.0-51.0); %Monocytes 9.3 % (0.0-10.0); %Neutrophils 52.6 % (42.0-75.0); Hemoglobin 10.6 g/dL (12.0-16.0); Mean Corpuscular HGB CONC 31.2 g/dL (32.0-36.0); Mean Corpuscular Hemoglobin 30.1 pg (27.0-31.0); Mean Corpuscular Volume 96.5 fL (78.0-98.0); Platelet Count 185 thou/uL (130-400); RBC Distribution Width 13.4 % (11.5-14.5); Red Blood Cell (RBC) Count 3.53 mill/uL (4.20-5.40)
[2019-05-17 23:44] LABS: ALT (SGPT) 19 U/L (8-55); AST (SGOT) 29 U/L (5-34); Albumin 3.7 g/dL (3.4-4.8); Alkaline Phosphatase 111 U/L (40-110); Anion Gap 16 mmol/L (10-20); BUN (Urea Nitrogen) 17 mg/dL (9.8-20.1); Bilirubin, Total 0.3 mg/dL (0.2-1.2); Calc. Creatinine Clearance 0 mL/min (70-130); Calcium 9.8 mg/dL (7.8-10.44); Carbon Dioxide 26 mmol/L (23-31); Chloride 101 mmol/L (98-107); Estimated GFR-MDRD 35; Globulin 3.4 g/dL (2.4-3.5); Glucose 198 mg/dL (83-110); Potassium 3.8 mmol/L (3.5-5.1); Protein, Total 7.1 g/dL (6.0-8.3); Sodium 139 mmol/L (136-145)
[2019-05-18] MEDS ORDERED: cefTRIAXone\\ROCEPHIN 1 GM VIAL ONE (00:10)
== END 2019-05-18 00:45 | disposition home or self-care (01) ==
LOC: MADERS 21:32
DX: J42 Unspecified chronic bronchitis (principal); I25.10 Atherosclerotic heart disease of native coronary artery without angina pectoris; E11.9 Type 2 diabetes mellitus without complications; E03.9 Hypothyroidism, unspecified; I10 Essential (primary) hypertension; F41.9 Anxiety disorder, unspecified; Z87.891 Personal history of nicotine dependence; Z79.84 Long term (current) use of oral hypoglycemic drugs; Z79.82 Long term (current) use of aspirin; Z79.899 Other long term (current) drug therapy
CPT/HCPCS: 71045; 80053; 84484; 85025; 93005; 94760; 96372; J0696; J1040; J2405; J7620; Q0162

== ENCOUNTER 2020-11-09 14:38 | Emergency (ER) | payer MEDICARE | END 2020-11-09 16:26 | disposition home or self-care (01) | LOC: MADERS 14:38 | DX: M19.011 Primary osteoarthritis, right shoulder (principal); M17.11 Unilateral primary osteoarthritis, right knee; R60.0 Localized edema; R26.9 Unspecified abnormalities of gait and mobility; R53.81 Other malaise; B94.8 Sequelae of other specified infectious and parasitic diseases; I25.10 Atherosclerotic heart disease of native coronary artery without angina pectoris; E11.9 Type 2 diabetes mellitus without complications; E03.9 Hypothyroidism, unspecified; I10 Essential (primary) hypertension; Z87.19 Personal history of other diseases of the digestive system; Z87.891 Personal history of nicotine dependence; Z79.899 Other long term (current) drug therapy; Z79.82 Long term (current) use of aspirin; Z79.51 Long term (current) use of inhaled steroids | CPT/HCPCS: 96372; J1040 ==

== ENCOUNTER 2021-12-28 12:26 | Emergency (ER) | payer MEDICARE ==
[2021-12-28 13:18] LABS: #Basophils 0.1 thou/uL (0.0-0.2); #Eosinphils 0.1 thou/uL (0.0-0.7); #Lymphocytes 1.1 thou/uL (1.20-3.40); #Monocytes 0.7 thou/uL (0.11-0.59); #Neutrophils 14.3 thou/uL (1.40-6.50); %Basophils 0.7 % (0.0-1.0); %Eosinophils 0.4 % (0.0-10.0); %Lymphocytes 6.8 % (21.0-51.0); %Monocytes 4.4 % (0.0-10.0); %Neutrophils 87.7 % (42.0-75.0); Hemoglobin 12.1 g/dL (12.0-16.0); Mean Corpuscular HGB CONC 31.6 g/dL (32.0-36.0); Mean Corpuscular Hemoglobin 26.4 pg (27.0-31.0); Mean Corpuscular Volume 83.3 fL (78.0-98.0); Mean Platelet Volume 8.7 fL (7.4-10.4); Platelet Count 268 thou/uL (130-400); White Blood Cell (WBC) Count 16.3 thou/uL (4.8-10.8)
[2021-12-28] MEDS ORDERED: Morphine 4 MG/ML VIAL ONE (13:19)
[2021-12-28] MEDS ORDERED: Ondansetron PF 4 MG/2 ML Vial ONE ×2 (13:19→15:46)
[2021-12-28] MEDS ORDERED: Sodium Chloride 0.9% 1,000 ML ONE ×2 (13:19→15:04)
[2021-12-28 13:22] LABS: Bilirubin Negative (Negative); Blood, Urine Negative (Negative); Clarity Clear (Clear); Glucose, Urine (Dipstick) Negative (Negative); Ketone, Urine Negative (Negative); Leukocyte Trace (Negative); Nitrite Negative (Negative); Protein, Urine (Dipstick) > or equal to 300 mg/dL (Neg-Trace); Specific Gravity, Urine 1.025 (1.005-1.030); Urobilinogen 0.2 mg/dL (Less than 2); pH, Urine 5.5 (5.0-9.0)
[2021-12-28 13:23] LABS: Bacteria/HPF 1+ HPF (None Seen); RBC/HPF 0-3 HPF (0-3)
[2021-12-28 14:02] LABS: ALT (SGPT) 32 U/L (8-55); AST (SGOT) 21 U/L (5-34); Albumin 3.6 g/dL (3.4-4.8); Alkaline Phosphatase 107 U/L (40-110); Anion Gap 21 mmol/L (10-20); BUN (Urea Nitrogen) 24 mg/dL (9.8-20.1); Bilirubin, Total 0.6 mg/dL (0.2-1.2); Calc. Creatinine Clearance 0 mL/min (70-130); Calcium 9.7 mg/dL (7.8-10.44); Carbon Dioxide 22 mmol/L (23-31); Chloride 94 mmol/L (98-107); Glucose 268 mg/dL (83-110); Lipase 11 U/L (8-78); Protein, Total 8.6 g/dL (5.8-8.1); Sodium 133 mmol/L (136-145)
[2021-12-28] MEDS ORDERED: cefTRIAXone\\ROCEPHIN 1 GM VIAL ONE (15:04)
[2021-12-28 16:05] LABS: Base Excess-Venous 0.5 mmol/L (-2.0 to 3.0); Bicarbonate (HCO3v) 26.1 mmol/L (22.0-28.0); CO2 Tension (PvCO2) 44.7 mmHg (42.0-51.0); Calcium, Ionized 1.16 mmol/L (1.15-1.33); Chloride 99 mmol/L (98-107); Hemoglobin - Calc 12.5 g/dL (12.0-16.0); Potassium 3.8 mmol/L (3.5-5.1); Sodium 134 mmol/L (138-145); T. Carbon Dioxide 27.5 mmol/L (22.0-28.0); vO2 Saturation-calc 98.2 % (60.0-85.0)
[2021-12-28] MEDS ORDERED: HYDROcodone/Acetaminophen 5/325 mg Tablet ONE (16:46)
== END 2021-12-28 17:03 | disposition home or self-care (01) ==
LOC: MADERS 12:26
DX: N39.0 Urinary tract infection, site not specified (principal); E11.65 Type 2 diabetes mellitus with hyperglycemia; E03.9 Hypothyroidism, unspecified; Z87.891 Personal history of nicotine dependence; I11.0 Hypertensive heart disease with heart failure; I50.9 Heart failure, unspecified; Z79.899 Other long term (current) drug therapy
CPT/HCPCS: 36415; 74176; 80053; 81003; 81015; 82330; 82803; 83690; 85025; 96361; 96374; 96375; 96376; J0696; J2270; J2405; J7050

== ENCOUNTER 2022-01-17 17:20 | Emergency (ER) | payer MEDICARE ==
[2022-01-17] MEDS ORDERED: Lactated Ringer's 1,000 ML ONE (18:12)
[2022-01-17 19:07] LABS: ALT (SGPT) 15 U/L (8-55); AST (SGOT) 29 U/L (5-34); Alkaline Phosphatase 208 U/L (40-110); Anion Gap 20 mmol/L (10-20); BUN (Urea Nitrogen) 28 mg/dL (9.8-20.1); Bilirubin, Total 0.5 mg/dL (0.2-1.2); Calc. Creatinine Clearance 0 mL/min (70-130); Calcium 9.7 mg/dL (7.8-10.44); Carbon Dioxide 24 mmol/L (23-31); Chloride 96 mmol/L (98-107); Estimated GFR 24; Globulin 4.7 g/dL (2.4-3.5); Glucose 216 mg/dL (83-110); Lipase 34 U/L (8-78); Potassium 4.6 mmol/L (3.5-5.1); Protein, Total 8.7 g/dL (5.8-8.1); Sodium 135 mmol/L (136-145)
[2022-01-17 19:09] LABS: Band 2 % (5-11); Eosinophils 3 % (0-10); Hemoglobin 12.2 g/dL (12.0-16.0); Lymphocytes 24 % (21-51); MDiff Complete? YES; Mean Corpuscular HGB CONC 32.1 g/dL (32.0-36.0); Mean Corpuscular Hemoglobin 26.6 pg (27.0-31.0); Mean Platelet Volume 9.2 fL (7.4-10.4); Monocytes 3 % (0-10); Neutrophil 64 % (42-75); Platelet Count 426 thou/uL (130-400); Platelet Morphology Comment Appears Increased; RBC Distribution Width 16.6 % (11.5-14.5); RBC Morphology Normal; Reactive Lymphocytes 4 % (0-10); Red Blood Cell (RBC) Count 4.57 mill/uL (4.20-5.40); White Blood Cell (WBC) Count 7.7 thou/uL (4.8-10.8)
[2022-01-17 19:10] LABS: Base Excess-Venous 3.7 mmol/L (-2.0 to 3.0); Bicarbonate (HCO3v) 28.9 mmol/L (22.0-28.0); CO2 Tension (PvCO2) 44.9 mmHg (42.0-51.0); Calcium, Ionized 1.18 mmol/L (1.15-1.33); Chloride 100 mmol/L (98-107); Hemoglobin - Calc 15.3 g/dL (12.0-16.0); Potassium 5.1 mmol/L (3.5-5.1); Sodium 136 mmol/L (138-145); T. Carbon Dioxide 30.3 mmol/L (22.0-28.0); vO2 Saturation-calc 97.6 % (60.0-85.0)
[2022-01-17 19:13] LABS: Bilirubin Negative (Negative); Blood, Urine Negative (Negative); Clarity Clear (Clear); Glucose, Urine (Dipstick) Negative (Negative); Ketone, Urine Negative (Negative); Leukocyte Negative (Negative); Nitrite Negative (Negative); Protein, Urine (Dipstick) 100 mg/dL (Neg-Trace); Specific Gravity, Urine 1.015 (1.005-1.030); Urobilinogen 0.2 mg/dL (Less than 2); pH, Urine 7.5 (5.0-9.0)
[2022-01-17 19:22] LABS: Bacteria/HPF Rare-Few HPF (None Seen); RBC/HPF None Seen HPF (0-3); Squamous Epithelial 0-3 HPF (0-3); WBC/HPF 0-3 HPF (0-3); Yeast-Budding Rare HPF (None Seen)
== END 2022-01-17 20:38 | disposition home or self-care (01) ==
LOC: MADERS 17:20
DX: E11.65 Type 2 diabetes mellitus with hyperglycemia (principal); K57.32 Diverticulitis of large intestine without perforation or abscess without bleeding; R79.1 Abnormal coagulation profile; I11.0 Hypertensive heart disease with heart failure; I50.9 Heart failure, unspecified; I25.10 Atherosclerotic heart disease of native coronary artery without angina pectoris; E03.9 Hypothyroidism, unspecified; Z87.19 Personal history of other diseases of the digestive system; Z87.891 Personal history of nicotine dependence; Z79.82 Long term (current) use of aspirin; Z79.899 Other long term (current) drug therapy
CPT/HCPCS: 36416; 74176; 80053; 81003; 81015; 82010; 82330; 82803; 83605; 83690; 85014; 85025; 93005; 94760; 96360; 96361; J7120

== ENCOUNTER 2022-08-02 02:02 | Emergency (ER) | payer MEDICARE, OTHER | END 2022-08-02 03:36 | disposition left against medical advice (07) | LOC: MADERS 02:02 | DX: K92.2 Gastrointestinal hemorrhage, unspecified (principal); E11.9 Type 2 diabetes mellitus without complications; E03.9 Hypothyroidism, unspecified; I11.0 Hypertensive heart disease with heart failure; I50.9 Heart failure, unspecified; Z87.891 Personal history of nicotine dependence; Z79.4 Long term (current) use of insulin; Z79.899 Other long term (current) drug therapy | CPT/HCPCS: 71045 ==

== ENCOUNTER 2023-10-03 15:14 | Emergency (ER) | payer OTHER ==
[2023-10-03] MEDS ORDERED: traMADol HCl 50 MG TAB ONE (16:08)
[2023-10-03] MEDS ORDERED: Naproxen 500 MG TAB ONE (16:08)
[2023-10-03 16:29] LABS: INR-International Normal Ratio 0.9; Prothrombin Time 12.3 sec (12.0-14.7)
[2023-10-03 16:32] LABS: Band 4 % (5-11); Eosinophils 1 % (0-10); Hematocrit 44.3 % (36.0-47.0); Hemoglobin 13.8 g/dL (12.0-16.0); Lymphocytes 12 % (21-51); MDiff Complete? YES; Mean Corpuscular HGB CONC 31.1 g/dL (32.0-36.0); Mean Corpuscular Hemoglobin 28.6 pg (27.0-31.0); Mean Platelet Volume 8.4 fL (7.4-10.4); Monocytes 6 % (0-10); Neutrophil 77 % (42-75); Platelet Adequacy Comment Appears Adequate; Platelet Count 212 10x3/uL (130-400); RBC Distribution Width 13.9 % (11.5-14.5); Red Blood Cell (RBC) Count 4.82 mill/uL (4.20-5.40); White Blood Cell (WBC) Count 6.8 10x3/uL (4.8-10.8)
[2023-10-03 16:33] LABS: D-Dimer Test 0.84 mcg/mL (0.27-0.43)
[2023-10-03 16:34] LABS: PTT 21.8 sec (22.9-36.1)
[2023-10-03 16:39] LABS: Anion Gap 18 mmol/L (10-20); BUN (Urea Nitrogen) 26 mg/dL (9.8-20.1); Calc. Creatinine Clearance 0 mL/min (70-130); Calcium 9.7 mg/dL (7.8-10.44); Carbon Dioxide 20 mmol/L (23-31); Chloride 100 mmol/L (98-107); Estimated GFR 20; Glucose 136 mg/dL (83-110); Potassium 4.2 mmol/L (3.5-5.1); Sodium 134 mmol/L (136-145); Uric Acid 8.2 mg/dL (2.6-6.0)
[2023-10-03] MEDS ORDERED: Acetaminophen/Codeine 30-300mg Tablet ONE (18:06)
== END 2023-10-03 18:10 | disposition short-term general hospital (02) ==
LOC: MADERS 15:14
DX: M10.9 Gout, unspecified (principal); I13.0 Hypertensive heart and chronic kidney disease with heart failure and stage 1 through stage 4 chronic kidney disease, or unspecified chronic kidney disease; E11.22 Type 2 diabetes mellitus with diabetic chronic kidney disease; N18.9 Chronic kidney disease, unspecified; I50.9 Heart failure, unspecified; I25.10 Atherosclerotic heart disease of native coronary artery without angina pectoris; E03.9 Hypothyroidism, unspecified; R79.89 Other specified abnormal findings of blood chemistry; Z87.891 Personal history of nicotine dependence; Z79.82 Long term (current) use of aspirin; Z79.4 Long term (current) use of insulin; Z79.899 Other long term (current) drug therapy
CPT/HCPCS: 36415; 80048; 84550; 85025; 85379; 85610; 85730

== ENCOUNTER 2024-01-10 16:46 | Emergency (ER) | payer OTHER ==
[2024-01-10 18:33] LABS: ALT (SGPT) 33 U/L (8-55); AST (SGOT) 43 U/L (5-34); Albumin 3.6 g/dL (3.4-4.8); Alkaline Phosphatase 140 U/L (40-110); Anion Gap 17 mmol/L (10-20); BUN (Urea Nitrogen) 14 mg/dL (9.8-20.1); Bilirubin, Total 0.4 mg/dL (0.2-1.2); Calc. Creatinine Clearance 0 mL/min (70-130); Calcium 9.2 mg/dL (7.8-10.44); Carbon Dioxide 24 mmol/L (23-31); Chloride 99 mmol/L (98-107); Estimated GFR 24; Globulin 4.6 g/dL (2.4-3.5); Glucose 152 mg/dL (83-110); Lipase 27 U/L (8-78); Potassium 3.5 mmol/L (3.5-5.1); Protein, Total 8.2 g/dL (5.8-8.1); Sodium 136 mmol/L (136-145)
[2024-01-10 18:35] LABS: Anisocytosis SLIGHT = 6-15 cells (100X) (0-5/hpf); Band 5 % (5-11); Eosinophils 4 % (0-10); Hematocrit 40.2 % (36.0-47.0); Hemoglobin 12.5 g/dL (12.0-16.0); Hypochromia SLIGHT = 6-15 cells (100X) (0-5/hpf); Lymphocytes 35 % (21-51); MDiff Complete? YES; Mean Corpuscular HGB CONC 31.2 g/dL (32.0-36.0); Mean Corpuscular Hemoglobin 28.5 pg (27.0-31.0); Mean Corpuscular Volume 91.4 fl (78.0-98.0); Mean Platelet Volume 6.9 fL (7.4-10.4); Monocytes 5 % (0-10); Neutrophil 49 % (42-75); Platelet Adequacy Comment Appears Adequate; Platelet Count 178 10x3/uL (130-400); RBC Distribution Width 13.3 % (11.5-14.5); Red Blood Cell (RBC) Count 4.39 mill/uL (4.20-5.40); White Blood Cell (WBC) Count 5.8 10x3/uL (4.8-10.8)
[2024-01-10] MEDS ORDERED: Promethazine HCl 25 MG/ML VIAL ONE (19:06)
[2024-01-10] MEDS ORDERED: Dicyclomine 20 MG/2 ML VIAL ONE (19:06)
[2024-01-10] MEDS ORDERED: Morphine 4 MG/ML VIAL ONE (19:06)
[2024-01-10 19:12] LABS: Troponin I 0.017 ng/mL (< 0.028)
== END 2024-01-10 20:55 | disposition home or self-care (01) ==
LOC: MADERS 16:46
DX: R10.9 Unspecified abdominal pain (principal); I13.0 Hypertensive heart and chronic kidney disease with heart failure and stage 1 through stage 4 chronic kidney disease, or unspecified chronic kidney disease; N18.9 Chronic kidney disease, unspecified; I50.9 Heart failure, unspecified; E88.09 Other disorders of plasma-protein metabolism, not elsewhere classified; R74.01 Elevation of levels of liver transaminase levels; E11.9 Type 2 diabetes mellitus without complications; E03.9 Hypothyroidism, unspecified; I25.10 Atherosclerotic heart disease of native coronary artery without angina pectoris; Z95.1 Presence of aortocoronary bypass graft; Z87.891 Personal history of nicotine dependence; Z79.82 Long term (current) use of aspirin; Z79.4 Long term (current) use of insulin
CPT/HCPCS: 36415; 74176; 80053; 83605; 83690; 84484; 85025; 93005; 94760; 96372; 96374; 96375; J2270; J2550

== ENCOUNTER 2024-04-11 09:26 | Emergency (ER) | payer OTHER ==
[2024-04-11] MEDS ORDERED: Meclizine HCl 25 MG TAB ONE (09:55)
[2024-04-11] MEDS ORDERED: Loratadine 10 MG TAB ONE (10:04)
== END 2024-04-11 10:07 | disposition home or self-care (01) ==
LOC: MADERS 09:26
DX: H81.13 Benign paroxysmal vertigo, bilateral (principal); E03.9 Hypothyroidism, unspecified; E11.9 Type 2 diabetes mellitus without complications; I11.0 Hypertensive heart disease with heart failure; I50.9 Heart failure, unspecified; Z87.891 Personal history of nicotine dependence; Z79.82 Long term (current) use of aspirin; Z79.899 Other long term (current) drug therapy
CPT/HCPCS: 99283

== ENCOUNTER 2024-05-18 10:37 | Emergency (ER) | payer OTHER ==
[2024-05-18] MEDS ORDERED: Meclizine HCl 25 MG TAB ONE (11:20)
[2024-05-18 12:39] LABS: Band 3 % (5-11); Eosinophils 1 % (0-10); Hematocrit 40.8 % (36.0-47.0); Hemoglobin 12.9 g/dL (12.0-16.0); Hypochromia SLIGHT = 6-15 cells (100X) (0-5/hpf); Lymphocytes 17 % (21-51); MDiff Complete? YES; Mean Corpuscular HGB CONC 31.6 g/dL (32.0-36.0); Mean Corpuscular Volume 91.8 fl (78.0-98.0); Mean Platelet Volume 8.1 fL (7.4-10.4); Monocytes 2 % (0-10); Neutrophil 77 % (42-75); Platelet Adequacy Comment Appears Adequate; Platelet Count 180 10x3/uL (130-400); RBC Distribution Width 13.3 % (11.5-14.5); Red Blood Cell (RBC) Count 4.45 mill/uL (4.20-5.40); White Blood Cell (WBC) Count 6.1 10x3/uL (4.8-10.8)
[2024-05-18 12:47] LABS: ALT (SGPT) 28 U/L (8-55); AST (SGOT) 31 U/L (5-34); Albumin 3.6 g/dL (3.4-4.8); Alkaline Phosphatase 116 U/L (40-110); Anion Gap 18 mmol/L (10-20); BUN (Urea Nitrogen) 22 mg/dL (9.8-20.1); Bilirubin, Total 0.6 mg/dL (0.2-1.2); Calc. Creatinine Clearance 0 mL/min (70-130); Calcium 9.7 mg/dL (7.8-10.44); Carbon Dioxide 23 mmol/L (23-31); Chloride 99 mmol/L (98-107); Estimated GFR 20; Globulin 5.5 g/dL (2.4-3.5); Glucose 134 mg/dL (83-110); Potassium 3.5 mmol/L (3.5-5.1); Protein, Total 9.1 g/dL (5.8-8.1); Sodium 136 mmol/L (136-145)
[2024-05-18 13:13] LABS: Bilirubin Negative (Negative); Blood, Urine Negative (Negative); Clarity Clear (Clear); Glucose, Urine (Dipstick) 500 mg/dL (Negative); Ketone, Urine Negative (Negative); Leukocyte Trace (Negative); Nitrite Negative (Negative); Protein, Urine (Dipstick) 100 mg/dL (Neg-Trace); Specific Gravity, Urine 1.015 (1.005-1.030); Urobilinogen 0.2 mg/dL (Less than 2)
[2024-05-18 13:16] LABS: RBC/HPF 0-3 HPF (0-3)
[2024-05-18 13:17] LABS: Bacteria/HPF Rare-Few HPF (None Seen); CAUTI Indications for Culture Dysuria,urgency,freq; WBC/HPF 0-3 HPF (0-3)
[2024-05-18 13:18] LABS: Urine Culture Reflex No No
[2024-05-18] MEDS ORDERED: Morphine 2 MG/ML VIAL ONE (14:17)
[2024-05-18] MEDS ORDERED: Aspirin 325 MG TAB ONE (14:18)
[2024-05-18] MEDS ORDERED: Atorvastatin Calcium 10 MG TAB PO SCH (14:45)
[2024-05-18] MEDS ORDERED: fentaNYL 50 mcg/mL 1 mL Vial ONE (16:33)
== END 2024-05-18 16:45 | disposition short-term general hospital (02) ==
LOC: MADERS 10:37
DX: R42 Dizziness and giddiness (principal); E11.9 Type 2 diabetes mellitus without complications; I10 Essential (primary) hypertension; Z86.73 Personal history of transient ischemic attack (TIA), and cerebral infarction without residual deficits; Z87.891 Personal history of nicotine dependence
CPT/HCPCS: 70450; 80053; 81001; 85025; 96374; 96375; 99285; J2272; J3010